=== PATIENT | female | born 1970 | race Caucasian/White ===

== ENCOUNTER → 2016-04-12 | Outpatient (CLI) | payer OTHER ==
[~2016-04-12] MED LIST: FERR1TAB58 PO; MULTTAB67 PO; NORC5TAB PO
[2016-04-12 19:35] LABS: HEMATOCRIT 34.7 % (35.0-46.0); MEAN CELL VOLUME 89.7 FL (80.0-100.0); MEAN CORPUSCULAR HEMOGLOBIN 29.4 PG (27.0-34.0); MEAN CORPUSCULAR HGB CONC 32.7 % (32.0-36.0); PLATELET COUNT 358 TH/MM3 (150-450); RED BLOOD COUNT 3.87 MIL/MM3 (4.00-5.30); RED CELL DISTRIBUTION WIDTH 13.6 % (11.6-17.2); REVIEW FLAG FINAL; WHITE BLOOD COUNT 7.4 TH/MM3 (4.0-11.0)
[2016-04-12 20:14] LABS: ANION GAP 9 MEQ/L (5-15); AST (GOT) 15 U/L (15-37); BICARBONATE 26.7 MEQ/L (21.0-32.0); BLOOD UREA NITROGEN 15 MG/DL (7-18); CHLORIDE 103 MEQ/L (98-107); GLOMERULAR FILTRATION RATE 55 ML/MIN (>89); GLUCOSE,FASTING 79 MG/DL (74-99); POTASSIUM 3.5 MEQ/L (3.5-5.1); SODIUM (NA) 139 MEQ/L (136-145)
[2016-04-12 20:19] LABS: ALKALINE PHOSPHATASE 77 U/L (45-117); ALT (GPT) 21 U/L (10-53); FERRITIN 8 NG/ML (8-252); TOTAL BILIRUBIN ADULT 0.2 MG/DL (0.2-1.0)
== END ==
LOC: PLAB 14:43
PROVIDERS: ATTEND Family Medicine
DX: D64.9 Anemia, unspecified (principal)
CPT/HCPCS: 80053; 82728; 85027

== ENCOUNTER → 2016-05-17 | Day surgery (SDC) | payer OTHER ==
--- NOTE | 2016-05-16 20:28 | MH ---
cc: SOCORRO MATHIS M.D. DATE OF ADMISSION 05/17/2016 DATE OF 10/21/1987 HISTORY OF THE PRESENT ILLNESS This is a 45-year-old female who has heavy vaginal bleeding which is becoming a problem. The patient is bleeding through her clothes, having pain. Her last hemoglobin was 11. The patient was considering an ablation but was found to have a prolapsed fibroid and understood why she was having the bleeding. She has been scheduled for a D&C, hysteroscopy, removal of fibroid with transcervical myomectomy. PAST MEDICAL HISTORY The patient's past medical history none. PAST SURGICAL HISTORY 1. ACL repair. 2. Tonsillectomy and adenoidectomy. 3. Septoplasty. OBSTETRICAL HISTORY She has never been . GYNECOLOGIC HISTORY She had a Pap smear in 2013 which was normal. MEDICATIONS Include vitamins. ALLERGIES None. SOCIAL HISTORY She does not smoke, drink or use drugs. PHYSICAL EXAMINATION VITAL SIGNS: Stable and afebrile. NECK: Thyroid palpably normally. HEART: Regular rate and rhythm without murmur or gallops. LUNGS: Clear to auscultation bilaterally. ABDOMEN: Soft, nontender, nondistended. PELVIC: Vulva and vagina was within normal limits. On speculum exam the patient has a 2.5 cm prolapsed fibroid from the os which is approximately 1 cm out of the os. EXTREMITIES: Lower extremities no edema. IMPRESSION Our impression at this time is submucosal fibroid which prolapsed through the cervix, she is having heavy vaginal bleeding. The patient will undergo a D&C, hysteroscopy, transcervical myomectomy. MD TISH Wolfe/LAURYN /7:43 PM /8:16 PM
[~2016-05-17] MED LIST changes: +ACETAMINOPHEN 1000 MG/100 ML VIAL IV ONE; +ACETAMINOPHEN/HYDROcodone 325 MG/5 MG TAB PO PRN; +APREPITANT 40 MG CAP ONE; +DEXAMETHASONE SOD PHOS 4 MG/ML VIAL ONE; +FAMOTIDINE 20 MG/2 ML VIAL ONE; +INSULIN HUMAN REGULAR 1,000 UNITS/10 ML VIAL SQ PRN; +KETOROLAC TROMETHAMINE 60 MG/2 ML (IM) VIAL IM ONE; +LACTATED RINGER'S 1000 ML IV SCH; +METOPROLOL TARTRATE 25 MG TAB PO PRN; +MIDAZOLAM HCL 2 MG/2 ML VIAL ONE; +ONDANSETRON HCL 4 MG/2 ML VIAL IV PUSH ONE; +PROPOFOL 200 MG/20 ML AMP IV ONE; +SODIUM CHLORID 0.9% 500 ML IV SCH; +fentaNYL CITRATE 250 MCG/5 ML AMP ONE
[2016-05-17 08:18] VITALS: BP 145/97; PULSE 98; RESP 20; TEMP 98.2; O2SAT 100
[2016-05-17 08:23] LABS: AUTOMATED NEUTROPHIL # 3.1 TH/MM3 (1.8-7.7); BASOPHIL % 0.6 % (0.0-2.0); EOSINOPHIL % 0.6 % (0.0-4.0); HEMATOCRIT 31.6 % (35.0-46.0); HEMO FLAGS DIFF FINAL; LYMPH % 28.2 % (9.0-44.0); LYMPHOCYTE # 1.4 TH/MM3 (1.0-4.8); MEAN CELL VOLUME 87.1 FL (80.0-100.0); MEAN CORPUSCULAR HEMOGLOBIN 28.7 PG (27.0-34.0); MONO % 8.4 % (0.0-8.0); NEUT % 62.2 % (16.0-70.0); PLATELET COUNT 332 TH/MM3 (150-450); RED BLOOD COUNT 3.62 MIL/MM3 (4.00-5.30); RED CELL DISTRIBUTION WIDTH 13.6 % (11.6-17.2); WHITE BLOOD COUNT 4.9 TH/MM3 (4.0-11.0)
--- NOTE | 2016-05-17 10:50 | PD.OP ---
Operative Report Date of Surgery: May 17, 2016 Preoperative Diagnosis: (1) Fibroid tumor (2) Vaginal bleeding between periods Postoperative Diagnosis: (1) Vaginal bleeding between periods (2) Fibroid tumor Procedure: D&C hysteroscopy and myomectomy Anesthesia: general Surgeon: Roberth Valdez Bonbon Cream Warmer(s): Roberth Alfaro MD May 17, 2016 10:50
--- NOTE | 2016-05-17 10:55 | HHI.DCPOC ---
Discharge Care Plan Diagnosis: (1) Vaginal bleeding between periods Report Symptoms to Your Doctor -Temperate above 100.5 degrees -Redness, of incision or excessive or foul smelling drainage -Unusual pain or calf pain -Increased vaginal bleeding -Painful or difficulty urinating -Feelings of extreme sadness or anxiety after 2 weeks Goals to Promote Your Health * To prevent worsening of your condition and complications * To maintain your health at the optimal level Directions to Meet Your Goals Take your medications as prescribed Follow your dietary instruction Follow activity as directed Ensure plenty of rest for recovery Drink fluids for hydration Keep your appointments as scheduled Take your immunizations and boosters as scheduled If your symptoms worsen call your PCP, if no PCP go to Urgent Care Center or Emergency Room Smoking is Dangerous to Your Health. Avoid second hand smoke Call the 24-hour crisis hotline for domestic abuse at Roberth Valdez MD May 17, 2016 10:55
[2016-05-17 12:40] VITALS: BP 128/83; PULSE 91; RESP 18; TEMP 97.9; O2SAT 100
--- NOTE | 2016-06-22 13:45 | MP ---
cc: SOCORRO VALDEZ DATE OF SURGERY: May 17, 2016 PROCEDURE Exam under anesthesia, D&C, hysteroscopy, myomectomy. PREOPERATIVE DIAGNOSIS Fibroid tumor prolapse from the cervix, vaginal bleeding heavy. POSTOPERATIVE DIAGNOSIS Fibroid tumor prolapse from the cervix, vaginal bleeding heavy. PROCEDURE Dilatation and curettage with hysteroscopy, myomectomy. ANESTHESIA General. SURGEON Dr. Socorro Valdez. PROCEDURE IN DETAIL After informed consent, the patient was taken to the operating room where she was placed under general anesthesia. She was placed in supine position, legs in the candy-cane stirrups. Abdomen, perineum and vagina were prepped and draped in normal sterile fashion. A bimanual exam revealed a 9-week size uterus with a 2.5 cm prolapsed fibroid. The uterus was sounded to 7 cm. Hysteroscopy was done. The stalk of the fibroid was seen. The fibroid was twisted off without significant bleeding. A D&C was performed. Endocervical curettage was performed without difficulty. The patient tolerated the procedure well. She was taken to the recovery room in stable condition. MD TISH Wolfe/EDVIN /9:24 AM /12:37 PM
== END | disposition home or self-care (01) ==
LOC: HSDC 07:27
PROVIDERS: ATTEND Obstetrics & Gynecology
DX: D25.0 Submucous leiomyoma of uterus (principal); N92.0 Excessive and frequent menstruation with regular cycle
CPT/HCPCS: 00952; 58561; 84703; 85025; 88305; J0131; J1100; J1885; J2250; J2405; J3010; J8501

== ENCOUNTER 2016-11-08 05:44 | Observation (INO) | payer OTHER ==
[~2016-11-08] VITALS: Ht 170.2 cm; Wt 79.8 kg
[~2016-11-08 05:44] MED LIST changes: -ACETAMINOPHEN 1000 MG/100 ML VIAL IV ONE; -ACETAMINOPHEN/HYDROcodone 325 MG/5 MG TAB PO PRN; -APREPITANT 40 MG CAP ONE; -DEXAMETHASONE SOD PHOS 4 MG/ML VIAL ONE; -FAMOTIDINE 20 MG/2 ML VIAL ONE; -INSULIN HUMAN REGULAR 1,000 UNITS/10 ML VIAL SQ PRN; -KETOROLAC TROMETHAMINE 60 MG/2 ML (IM) VIAL IM ONE; -LACTATED RINGER'S 1000 ML IV SCH; -METOPROLOL TARTRATE 25 MG TAB PO PRN; -MIDAZOLAM HCL 2 MG/2 ML VIAL ONE; -ONDANSETRON HCL 4 MG/2 ML VIAL IV PUSH ONE; -PROPOFOL 200 MG/20 ML AMP IV ONE; -SODIUM CHLORID 0.9% 500 ML IV SCH; -fentaNYL CITRATE 250 MCG/5 ML AMP ONE
[2016-11-08] MEDS ORDERED: SODIUM CHLORID 0.9% 500 ML IV PRN (06:00)
[2016-11-08] MEDS ORDERED: POVIDONE IODINE 5% (ANTISEPSIS KIT) 4 APPLICATIONS EACH NARE PRN (06:00)
[2016-11-08] MEDS ORDERED: LACTATED RINGER'S 1000 ML IV PRN (06:00)
[2016-11-08] MEDS ORDERED: METOPROLOL TARTRATE 25 MG TAB PO PRN (06:00)
[2016-11-08] MEDS ORDERED: CHLORHEXIDINE GLUCONATE 2 % 1 PACK (2 CLOTHS) TOPICAL PRN (06:00)
[2016-11-08] MEDS ORDERED: ceFAZolin 2 GM PREMIX 50 ML IV SCH (06:00)
[2016-11-08] MEDS ORDERED: INSULIN HUMAN REGULAR 1,000 UNITS/10 ML VIAL SQ PRN (06:00)
[2016-11-08] MEDS ORDERED: APREPITANT 40 MG CAP PO SCH (06:15)
[2016-11-08 06:21] VITALS: BP 143/88; PULSE 85; RESP 18; TEMP 98.6; O2SAT 98
[2016-11-08] MEDS ORDERED: MIDAZOLAM HCL 2 MG/2 ML VIAL ONE (07:10)
[2016-11-08] MEDS ORDERED: ACETAMINOPHEN 1000 MG/100 ML VIAL IV ONE (07:10)
[2016-11-08] MEDS ORDERED: DEXAMETHASONE SOD PHOS 4 MG/ML VIAL ONE (07:11)
[2016-11-08] MEDS ORDERED: FAMOTIDINE 20 MG/2 ML VIAL ONE (07:11)
[2016-11-08 07:12] LABS: AUTOMATED NEUTROPHIL # 2.6 TH/MM3 (1.8-7.7); BASOPHIL % 0.5 % (0.0-2.0); EOSINOPHIL # 0.1 TH/MM3 (0-0.4); EOSINOPHIL % 1.5 % (0.0-4.0); HEMATOCRIT 38.7 % (35.0-46.0); HEMO FLAGS DIFF FINAL; LYMPH % 35.3 % (9.0-44.0); LYMPHOCYTE # 1.7 TH/MM3 (1.0-4.8); MEAN CELL VOLUME 87.6 FL (80.0-100.0); MEAN CORPUSCULAR HEMOGLOBIN 30.1 PG (27.0-34.0); MEAN CORPUSCULAR HGB CONC 34.3 % (32.0-36.0); MONO % 8.5 % (0.0-8.0); NEUT % 54.2 % (16.0-70.0); PLATELET COUNT 249 TH/MM3 (150-450); RED BLOOD COUNT 4.42 MIL/MM3 (4.00-5.30); RED CELL DISTRIBUTION WIDTH 15.3 % (11.6-17.2); WHITE BLOOD COUNT 4.8 TH/MM3 (4.0-11.0)
[2016-11-08 07:23] LABS: BETA HCG QUANT LESS THAN 1 MIU/ML (0-5)
[2016-11-08] MEDS ORDERED: LIDOCAINE 1%/EPINEPHrine 1:100,000 SOLN 20 ML VIAL ONE (07:30)
[2016-11-08] MEDS ORDERED: KETOROLAC TROMETHAMINE 30 MG/ML (IVP) VIAL ONE (09:17)
[2016-11-08] MEDS ORDERED: HYDROmorphone HCL PF 1 MG/ML VIAL IVP PRN (09:30)
[2016-11-08] MEDS ORDERED: diphenhydrAMINE HCL 25 MG CAP PO PRN (09:30)
[2016-11-08] MEDS ORDERED: SODIUM CHLORIDE 0.9% FLUSH 10 ML FLUSH IV FLUSH PRN (09:30)
[2016-11-08] MEDS ORDERED: DO NOT ADM ANY ANTICOAGULANT DRUGS PRN (09:30)
[2016-11-08] MEDS ORDERED: ACETAMINOPHEN/HYDROcodone 325 MG/5 MG TAB PO PRN ×2 (09:30)
[2016-11-08] MEDS ORDERED: ONDANSETRON HCL 4 MG/2 ML VIAL IVP PRN (09:30)
[2016-11-08] MEDS ORDERED: IBUPROFEN 600 MG TAB PO PRN (09:30)
[2016-11-08] MEDS ORDERED: KETOROLAC TROMETHAMINE 30 MG/ML (IVP) VIAL IVP PRN (09:30)
--- NOTE | 2016-11-08 09:30 | PD.OP ---
Operative Report Date of Surgery: Nov 08, 2016 Preoperative Diagnosis: (1) Fibroid tumor (2) Vaginal bleeding between periods Postoperative Diagnosis: (1) Vaginal bleeding between periods (2) Fibroid tumor Procedure: LAVH bilateral salpingectomy Anesthesia: general Surgeon: Roberth Valdez Elementary Vocal Music Teacher(s): Roberth Patterson MD Nov 08, 2016 09:30
[2016-11-08] MEDS ORDERED: fentaNYL CITRATE 250 MCG/5 ML AMP ONE (09:36)
[2016-11-08] MEDS ORDERED: *morphine SULFATE 8 MG/ML PERIprocedure ONLY ONE (09:47)
[2016-11-08] MEDS ORDERED: *HYDROmorphone PF 1 MG VIAL PERIprocedural Use ONLY ONE (10:40)
[2016-11-08] MEDS ORDERED: NEOSTIGMINE 3 MG/3 ML SYR IV ONE (12:00)
[2016-11-08] MEDS ORDERED: PROPOFOL 200 MG/20 ML AMP IV ONE (12:00)
[2016-11-08] MEDS ORDERED: KETOROLAC TROMETHAMINE 60 MG/2 ML (IM) VIAL IM ONE (12:00)
[2016-11-08] MEDS ORDERED: ONDANSETRON HCL 4 MG/2 ML VIAL IV PUSH ONE (12:00)
[2016-11-08] MEDS ORDERED: LACTATED RINGER'S 1000 ML INJ 1,000 ML IV ONE (12:00)
[2016-11-08 13:36] VITALS: BP 118/77; PULSE 59; RESP 18; O2SAT 99
--- NOTE | 2016-11-08 13:48 | MP ---
cc: ANTONIO VALDEZ DATE OF SURGERY: 11/08/2016 PREOPERATIVE DIAGNOSIS: Laparoscopic-assisted vaginal hysterectomy with a bilateral salpingectomy. PREOPERATIVE DIAGNOSIS Excessive menses Fibroids. POSTOPERATIVE DIAGNOSIS Excessive menses. Fibroids. SURGEON Dr. Roberth Valdez ESTIMATED BLOOD LOSS 150 cc COMPLICATIONS None. ANESTHESIA: Anesthesia was general Dr. Jimenez FINDINGS Fibroid uterus, normal ovaries, bilateral PROCEDURE IN DETAIL After informed consent the patient operating room where she was placed under general anesthesia placed in the supine position, legs in the Yellofins stirrups. Abdomen, perneum, and vagina prepped, draped normal sterile fashion after adequate anesthesia was assured and time out was taken, a speculum placed in the vagina. Cervix was grasped with a single-toothed tenaculum. We placed a uterine manipulator without difficulty, Hulka type. We then proceeded to place a Hutchinson under sterile technique with 1% lidocaine with epinephrine. Good urine output was noted at this point our gloves were changed a 5 mm infraumbilical incision was then made after injection with 1% lidocaine with epinephrine. We entered the abdomen under direct visualization. The left and right lower trocars were placed 5 mm size. Good hemostasis was achieved at all pedicles at this point the upper and lower abdomen was noted be normal except for the fibroid uterus, fallopian tubes were grasped under the mesosalpinx and removed the fallopian tubes from the ovaries and amputated from the uterus was sent with the specimen, those were both removed from the abdomen without difficulty. The uterine ovarian ligament and the broad ligament were taken with a Harmonic scalpel all the way down the level of the cervix. The bladder flap was created by dissecting bladder off the cervix without difficulty. Once the bladder was dissected down we went to the vaginal portion of the case, using scalpel we entered the anterior mucosa down to the level of the cervical fascia dissected that out, pushing the bladder out of the way. We entered the abdomen anterior and then posterior we entered between the uterosacral and cardinal ligaments. The posterior cul-de-sac was entered using Helen clamp, it was clamped, cut and tied the bilateral uterosacral ligaments by good hemostasis was achieved. We placed one clamp on either side and the uterus was amputated. We removed the uterus. Good hemostasis was achieved all pedicles. The posterior cuff were running locking stitch of 0 Vicryl suture. The vaginal cuff was run with running stitch of Vicryl suture. Good hemostasis achieved. The patient tolerated the procedure well. She was taken to recovery room in stable condition after lap and instrument counts reported as correct in the abdominal 5 mm incisions were closed. MD TISH Wolfe/jason /8:54 AM /1:38 PM
[2016-11-08] MEDS ORDERED: SODIUM CHLORIDE 0.9% FLUSH 10 ML FLUSH IV FLUSH SCH (21:00)
== END 2016-11-08 13:50 | disposition home or self-care (01) ==
LOC: HSDC 05:44 → HSDI 09:24
PROVIDERS: ADMIT Obstetrics & Gynecology; ATTEND Obstetrics & Gynecology
PROC: 0UTC7ZZ Resection of Cervix, Via Natural or Artificial Opening (ICD-10-PCS; 2016-11-08)
PROC: 0UT7FZZ Resection of Bilateral Fallopian Tubes, Via Natural or Artificial Opening With Percutaneous Endoscopic Assistance (ICD-10-PCS; 2016-11-08)
PROC: 0UT9FZZ Resection of Uterus, Via Natural or Artificial Opening With Percutaneous Endoscopic Assistance (ICD-10-PCS; principal; 2016-11-08 07:20)
DX: D25.9 Leiomyoma of uterus, unspecified (principal); N80.0 Endometriosis of uterus; N72 Inflammatory disease of cervix uteri; N92.0 Excessive and frequent menstruation with regular cycle
CPT/HCPCS: 00840; 58552; 84702; 85025; 86850; 86900; 86901; 88307; 88311; J0131; J0690; J1100; J1170; J1885; J2250; J2270; J2405; J2710; J3010; J7120; J8501